=== PATIENT | female | born 1950 | race Two or more races ===

== ENCOUNTER 2020-05-11 07:00 | Day surgery (SDC) | payer OTHER ==
[~2020-05-11 07:00] MED LIST: MULTIVITAMINS1 EAC9 PO
[2020-05-12] MEDS ORDERED: RECTICARE30 GM TOP (13:17)
[2020-05-12] MEDS ORDERED: ULTRACET PO (13:17)
== END 2020-05-12 08:00 | disposition home or self-care (01) ==
LOC: CIR.AMB 07:00 → SURG 07:07 → SURH 07:07 → O/R 07:07 → EDSTATUS 07:45 → SURH 07:45 → O/R 15:40 → SURG 15:40 → CIR.AMB 05-12 08:00 → SURG 05-12 17:06
PROVIDERS: ATTEND Surgery
DX: N81.6 Rectocele (principal); K64.8 Other hemorrhoids; R39.15 Urgency of urination

== ENCOUNTER 2020-09-15 05:30 | Day surgery (SDC) | payer OTHER ==
[~2020-09-15 05:30] MED LIST changes: +RECTICARE30 GM TOP; +ULTRACET PO
== END 2020-09-15 09:45 | disposition home or self-care (01) ==
LOC: AMB-ENDOS 05:30
PROVIDERS: ATTEND Surgery
DX: K62.89 Other specified diseases of anus and rectum (principal); Z20.822 Contact with and (suspected) exposure to COVID-19